=== PATIENT | male | born 1935 | race Asian ===

== ENCOUNTER → 2017-02-04 | Outpatient (CLI) | payer BC ==
[~2017-02-04] MED LIST: ANTIVERT 25MG25 MG PO; ASPIRIN E.C. 8181 MG PO; CALCIUM + D 6001 TA1 PO; DYAZIDE 25 MG-31 CAP PO; LIPITOR 10MG10 MG PO; PRINIVIL2.5 MG PO
== END ==
LOC: COL.RAD 13:56
DX: S92.355A Nondisplaced fracture of fifth metatarsal bone, left foot, initial encounter for closed fracture (principal)

== ENCOUNTER → 2020-06-03 | Outpatient (CLI) | payer BC | LOC: COL.VAS 05-19 12:30 | DX: I08.3 Combined rheumatic disorders of mitral, aortic and tricuspid valves (principal); I77.819 Aortic ectasia, unspecified site ==

== ENCOUNTER 2021-07-03 11:46 | Emergency (ER) | payer BC ==
[~2021-07-03] VITALS: Ht 170.2 cm; Wt 72.7 kg
[2021-07-03 13:33] VITALS: BP 136/64; PULSE 60; TEMP 97.3
== END 2021-07-03 13:35 | disposition home or self-care (01) ==
LOC: COL.ER 11:46
DX: S61.012A Laceration without foreign body of left thumb without damage to nail, initial encounter (principal); I10 Essential (primary) hypertension; Z79.899 Other long term (current) drug therapy; W25.XXXA Contact with sharp glass, initial encounter